=== PATIENT | female | born 1970 | race Caucasian/White ===

== ENCOUNTER 2017-02-06 07:40 | Emergency (ER) | payer SELFPAY ==
[~2017-02-06] VITALS: Ht 172.7 cm; Wt 80.0 kg
[~2017-02-06 07:40] MED LIST: CARI350T14 PO; OXYC10TA6 PO; OXYC40TA27 PO; QUET25TA PO
[2017-02-06 07:50] VITALS: BP 128/75
== END 2017-02-06 08:24 | disposition left against medical advice (07) ==
LOC: ED 08:18
DX: J32.9 Chronic sinusitis, unspecified (principal); F22 Delusional disorders; Z87.01 Personal history of pneumonia (recurrent)
CPT/HCPCS: 99283